=== PATIENT | female | born 1940 | race American Indian/Alaskan Native ===

== ENCOUNTER 2016-10-22 09:02 | Outpatient (CLI) | payer MEDICARE ==
--- NOTE | 2016-10-22 10:37 | XRay Report ---
LUMBAR SPINE RADIOGRAPHS: INDICATION: Low back pain. COMPARISON: None similar at this institution. FINDINGS: AP and lateral lumbar spine radiographs demonstrate multilevel degenerative spurring, greatest lower thoracic. Slight lumbar dextroscoliosis apex about L3. Moderate L3-L4 disc narrowing with mild adjacent sclerosis may also be present. Possible lower lumbar facet arthropathy. Intact SI joints. Nonobstructive bowel gas pattern. Clear visualized lung bases. CONCLUSION: No acute lumbar radiographic abnormality with moderate bony degenerative changes noted, as above. Thank you for the opportunity to participate in this patient's care.
== END 2016-10-22 09:03 | disposition home or self-care (01) ==
LOC: SPVIMAG 09:02
PROVIDERS: ATTEND Internal Medicine
DX: M47.27 Other spondylosis with radiculopathy, lumbosacral region (principal); M41.86 Other forms of scoliosis, lumbar region
CPT/HCPCS: 72100